=== PATIENT | male | born 1975 | race Caucasian/White ===

== ENCOUNTER 2016-10-19 14:41 | Emergency (ER) | payer MEDICARE | END 2016-10-19 19:50 | disposition other institution (70) | LOC: ER 14:41 | DX: J44.1 Chronic obstructive pulmonary disease with (acute) exacerbation (principal); L03.116 Cellulitis of left lower limb; L03.115 Cellulitis of right lower limb; G40.909 Epilepsy, unspecified, not intractable, without status epilepticus; I10 Essential (primary) hypertension; F17.210 Nicotine dependence, cigarettes, uncomplicated; Z99.81 Dependence on supplemental oxygen; Z79.899 Other long term (current) drug therapy | CPT/HCPCS: 99284; 99285-25 ==

== ENCOUNTER 2016-10-19 14:41 | Inpatient (IN) | payer MEDICARE ==
[~2016-10-19] VITALS: Ht 185.4 cm; Wt 126.0 kg
[2016-10-19 15:27] LABS: ARTERIAL BLD GAS O2 SATURATION 94.1 % (94-98); ARTERIAL BLOOD GAS BASE EXCESS 3.9 mmol/L (-2.0-3.0); ARTERIAL BLOOD GAS HCO3 32.3 mmol/L (22-26); ARTERIAL BLOOD GAS PCO2 65.4 mmHg (35-48); ARTERIAL BLOOD GAS pH 7.31 (7.35-7.45)
[2016-10-19 15:59] LABS: BASO % 0.4 % (0.2-1.2); EOS # 0.2 10_X3_uL (0.0-0.5); EOS % 2.9 % (0.8-7.0); GRAN # 5.1 10_X3_uL (1.8-5.4); HEMOGLOBIN 17.1 g/dL (13.7-17.5); LYMPH # 1.9 10_X3_uL (1.3-3.6); LYMPH % 23.9 % (21.8-53.1); MEAN CORPUSCULAR HEMOGLOBIN 28.3 pg (27.0-33.0); MEAN CORPUSCULAR HGB CONC 31.1 g/dL (32.0-36.0); MEAN CORPUSCULAR VOLUME 90.9 fL (79-92); MEAN PLATELET VOLUME 9.7 fl (7.5-11.5); MONO # 0.7 10_X3_uL (0.3-0.8); MONO % 8.8 % (5.3-12.2); PLATELET COUNT 192 x10_3/uL (163-337); RED BLOOD COUNT 6.05 x10_6/uL (4.6-6.1); RED CELL DISTRIBUTION WIDTH 17.7 % (11.6-14.4); WHITE BLOOD COUNT 7.9 x10_3/uL (4.2-9.1)
[2016-10-19 16:07] LABS: ALBUMIN 3.5 gm/dL (3.4-5.0); ALKALINE PHOSPHATASE 153 U/L (50-136); ALT/SGPT 28 U/L (7.53-40.17); AST/SGOT 24 U/L (6.66-35.34); BILIRUBIN,TOTAL 0.29 mg/dL (0.0-1.0); BLOOD UREA NITROGEN 10 mg/dL (7-18); CALCIUM 8.1 mg/dL (8.7-10.7); CARBON DIOXIDE 30 mmol/L (21-32); CREATINE KINASE 72 U/L (35-232); CREATININE 0.5 mg/dL (0.6-1.3); GLUCOSE,RANDOM 109 mg/dL (70-99); POTASSIUM 3.9 mmol/L (3.5-5.1); SODIUM 140 mmol/L (136-145); TOTAL PROTEIN 6.9 gm/dL (6.4-8.2)
[2016-10-20 06:27] LABS: BLOOD UREA NITROGEN 12 mg/dL (7-18); CALCIUM 8.8 mg/dL (8.7-10.7); CARBON DIOXIDE 33 mmol/L (21-32); CREATININE 0.6 mg/dL (0.6-1.3); GLUCOSE,RANDOM 138 mg/dL (70-99); POTASSIUM 4.8 mmol/L (3.5-5.1); SODIUM 141 mmol/L (136-145)
[2016-10-20 06:45] LABS: HEMATOCRIT 57.9 % (40-51); HEMOGLOBIN 18.2 g/dL (13.7-17.5); MEAN CORPUSCULAR HEMOGLOBIN 28.3 pg (27.0-33.0); MEAN CORPUSCULAR HGB CONC 31.4 g/dL (32.0-36.0); MEAN PLATELET VOLUME 9.2 fl (7.5-11.5); RED BLOOD COUNT 6.43 x10_6/uL (4.6-6.1); RED CELL DISTRIBUTION WIDTH 17.6 % (11.6-14.4); WHITE BLOOD COUNT 7.4 x10_3/uL (4.2-9.1)
[2016-10-20 06:46] LABS: ARTERIAL BLD GAS O2 SATURATION 87.1 % (94-98); ARTERIAL BLOOD GAS BASE EXCESS 5.6 mmol/L (-2.0-3.0); ARTERIAL BLOOD GAS HCO3 34.2 mmol/L (22-26); ARTERIAL BLOOD GAS PCO2 65.5 mmHg (35-48); ARTERIAL BLOOD GAS pH 7.34 (7.35-7.45)
[2016-10-21 07:02] LABS: HEMATOCRIT 57.2 % (40-51); HEMOGLOBIN 17.6 g/dL (13.7-17.5); MEAN CORPUSCULAR HEMOGLOBIN 27.8 pg (27.0-33.0); MEAN CORPUSCULAR HGB CONC 30.8 g/dL (32.0-36.0); MEAN CORPUSCULAR VOLUME 90.5 fL (79-92); MEAN PLATELET VOLUME 10.3 fl (7.5-11.5); RED BLOOD COUNT 6.32 x10_6/uL (4.6-6.1); RED CELL DISTRIBUTION WIDTH 18.3 % (11.6-14.4)
[2016-10-21 07:28] LABS: BLOOD UREA NITROGEN 16 mg/dL (7-18); CALCIUM 8.4 mg/dL (8.7-10.7); CARBON DIOXIDE 31 mmol/L (21-32); CREATININE 0.6 mg/dL (0.6-1.3); GLUCOSE,RANDOM 122 mg/dL (70-99); SODIUM 139 mmol/L (136-145)
[2016-10-21 08:27] LABS: POTASSIUM 5.4 mmol/L (3.5-5.1)
[2016-10-22 06:32] LABS: BLOOD UREA NITROGEN 19 mg/dL (7-18); CALCIUM 8.5 mg/dL (8.7-10.7); CARBON DIOXIDE 35 mmol/L (21-32); CREATININE 0.7 mg/dL (0.6-1.3); GLUCOSE,RANDOM 131 mg/dL (70-99); POTASSIUM 4.8 mmol/L (3.5-5.1); SODIUM 140 mmol/L (136-145)
[2016-10-22 06:48] LABS: HEMATOCRIT 58.6 % (40-51); MEAN CORPUSCULAR HEMOGLOBIN 28.1 pg (27.0-33.0); MEAN CORPUSCULAR HGB CONC 30.7 g/dL (32.0-36.0); MEAN CORPUSCULAR VOLUME 91.6 fL (79-92); MEAN PLATELET VOLUME 10.3 fl (7.5-11.5); RED BLOOD COUNT 6.4 x10_6/uL (4.6-6.1); RED CELL DISTRIBUTION WIDTH 18.5 % (11.6-14.4); WHITE BLOOD COUNT 11.3 x10_3/uL (4.2-9.1)
[2016-10-23 06:12] LABS: HEMATOCRIT 59.4 % (40-51); HEMOGLOBIN 18.6 g/dL (13.7-17.5); MEAN CORPUSCULAR HEMOGLOBIN 28.3 pg (27.0-33.0); MEAN CORPUSCULAR HGB CONC 31.3 g/dL (32.0-36.0); MEAN CORPUSCULAR VOLUME 90.4 fL (79-92); MEAN PLATELET VOLUME 9.4 fl (7.5-11.5); RED BLOOD COUNT 6.57 x10_6/uL (4.6-6.1); RED CELL DISTRIBUTION WIDTH 18.8 % (11.6-14.4); WHITE BLOOD COUNT 12.6 x10_3/uL (4.2-9.1)
[2016-10-23 06:16] LABS: BLOOD UREA NITROGEN 22 mg/dL (7-18); CALCIUM 8.6 mg/dL (8.7-10.7); CARBON DIOXIDE 37 mmol/L (21-32); CREATININE 0.7 mg/dL (0.6-1.3); GLUCOSE,RANDOM 106 mg/dL (70-99); POTASSIUM 4.8 mmol/L (3.5-5.1); SODIUM 137 mmol/L (136-145)
== END 2016-10-23 11:36 | disposition home or self-care (01) | DRG 190 ==
LOC: ER 14:41 → MS 19:50
PROVIDERS: Emergency Medicine; Family Medicine; ADMIT Family Medicine
PROC: 3E0234Z Introduction of Serum, Toxoid and Vaccine into Muscle, Percutaneous Approach (ICD-10-PCS; principal; 2016-10-20)
DX: J44.0 Chronic obstructive pulmonary disease with (acute) lower respiratory infection (principal); J18.0 Bronchopneumonia, unspecified organism; J96.90 Respiratory failure, unspecified, unspecified whether with hypoxia or hypercapnia; I50.21 Acute systolic (congestive) heart failure; L03.116 Cellulitis of left lower limb; L03.115 Cellulitis of right lower limb; J44.1 Chronic obstructive pulmonary disease with (acute) exacerbation; I11.0 Hypertensive heart disease with heart failure; I51.7 Cardiomegaly; G40.909 Epilepsy, unspecified, not intractable, without status epilepticus; Z90.49 Acquired absence of other specified parts of digestive tract; M79.1 Myalgia; M25.50 Pain in unspecified joint; M54.9 Dorsalgia, unspecified; Z99.81 Dependence on supplemental oxygen; Z79.899 Other long term (current) drug therapy; F17.210 Nicotine dependence, cigarettes, uncomplicated; Z83.3 Family history of diabetes mellitus; Z80.9 Family history of malignant neoplasm, unspecified; Z82.49 Family history of ischemic heart disease and other diseases of the circulatory system; Z23 Encounter for immunization
CPT/HCPCS: 36415; 36600; 71020; 71250; 80048; 80053; 80185; 82550; 82553; 82803; 83605; 83880; 85025; 86738; 87040; 87070; 87205; 87449; 90732; 93005; 93306; 94640; 94660; 94664; 96374; 96375; 99070; 99284; 99285-25; G0009; J2930

== ENCOUNTER 2016-11-15 18:44 | Emergency (ER) | payer MEDICARE ==
[2016-11-15 19:11] LABS: BASO % 0.2 % (0.2-1.2); EOS # 0.1 10_X3_uL (0.0-0.5); EOS % 0.4 % (0.8-7.0); GRAN % 79.1 % (34.0-67.9); HEMATOCRIT 53.9 % (40-51); HEMOGLOBIN 16.7 g/dL (13.7-17.5); LYMPH % 12.1 % (21.8-53.1); MEAN CORPUSCULAR HEMOGLOBIN 28.8 pg (27.0-33.0); MEAN CORPUSCULAR VOLUME 92.9 fL (79-92); MEAN PLATELET VOLUME 9.9 fl (7.5-11.5); MONO # 1.3 10_X3_uL (0.3-0.8); MONO % 8.2 % (5.3-12.2); PLATELET COUNT 189 x10_3/uL (163-337); RED CELL DISTRIBUTION WIDTH 20.1 % (11.6-14.4); WHITE BLOOD COUNT 16.4 x10_3/uL (4.2-9.1)
[2016-11-15 19:23] LABS: ALBUMIN 3.6 gm/dL (3.4-5.0); ALKALINE PHOSPHATASE 119 U/L (50-136); ALT/SGPT 24 U/L (7.53-40.17); AST/SGOT 22 U/L (6.66-35.34); BILIRUBIN,TOTAL 0.56 mg/dL (0.0-1.0); BLOOD UREA NITROGEN 18 mg/dL (7-18); CALCIUM 8.3 mg/dL (8.7-10.7); CARBON DIOXIDE 31 mmol/L (21-32); CREATININE 0.8 mg/dL (0.6-1.3); GLUCOSE,RANDOM 119 mg/dL (70-99); POTASSIUM 4.8 mmol/L (3.5-5.1); SODIUM 135 mmol/L (136-145); TOTAL PROTEIN 7.1 gm/dL (6.4-8.2)
[2016-11-15 19:25] LABS: ARTERIAL BLOOD GAS BASE EXCESS 3.1 mmol/L (-2.0-3.0); ARTERIAL BLOOD GAS HCO3 32.3 mmol/L (22-26); ARTERIAL BLOOD GAS pH 7.28 (7.35-7.45)
[2016-11-15 19:29] LABS: ARTERIAL BLOOD GAS PCO2 70.5 mmHg (35-48)
[2016-11-15 20:13] LABS: ARTERIAL BLD GAS O2 SATURATION 96.1 % (94-98); ARTERIAL BLOOD GAS BASE EXCESS 1.7 mmol/L (-2.0-3.0); ARTERIAL BLOOD GAS HCO3 32.3 mmol/L (22-26); ARTERIAL BLOOD GAS pH 7.24 (7.35-7.45)
[2016-11-15 20:18] LABS: ARTERIAL BLOOD GAS PCO2 78.8 mmHg (35-48)
[2016-11-15 21:25] LABS: ARTERIAL BLD GAS O2 SATURATION 94.9 % (94-98); ARTERIAL BLOOD GAS BASE EXCESS 1.8 mmol/L (-2.0-3.0); ARTERIAL BLOOD GAS HCO3 33.7 mmol/L (22-26)
[2016-11-15 23:02] LABS: ARTERIAL BLD GAS O2 SATURATION 87.3 % (94-98); ARTERIAL BLOOD GAS HCO3 32.3 mmol/L (22-26); ARTERIAL BLOOD GAS pH 7.21 (7.35-7.45)
== END 2016-11-16 00:35 | disposition short-term general hospital (02) ==
LOC: ER 18:44
PROVIDERS: General Practice
DX: I13.0 Hypertensive heart and chronic kidney disease with heart failure and stage 1 through stage 4 chronic kidney disease, or unspecified chronic kidney disease (principal); I50.9 Heart failure, unspecified; N18.9 Chronic kidney disease, unspecified; E87.2 Acidosis; J18.9 Pneumonia, unspecified organism; J84.9 Interstitial pulmonary disease, unspecified; J44.9 Chronic obstructive pulmonary disease, unspecified; R06.2 Wheezing; G40.909 Epilepsy, unspecified, not intractable, without status epilepticus; G89.29 Other chronic pain; F41.9 Anxiety disorder, unspecified; Z99.81 Dependence on supplemental oxygen; F17.210 Nicotine dependence, cigarettes, uncomplicated; Z79.899 Other long term (current) drug therapy
CPT/HCPCS: 36415; 36600; 71010; 80053; 82803; 83605; 83880; 85025; 87040; 93005; 94660; 94664; 96361; 96365; 96367; 96375; 99070; 99285; 99285-25; J2930; J7040; J7050

== ENCOUNTER 2016-11-29 15:36 | Emergency (ER) | payer MEDICARE ==
[2016-11-29 16:10] LABS: ARTERIAL BLD GAS O2 SATURATION 82.8 % (94-98); ARTERIAL BLOOD GAS BASE EXCESS 3.9 mmol/L (-2.0-3.0); ARTERIAL BLOOD GAS HCO3 35.1 mmol/L (22-26); ARTERIAL BLOOD GAS pH 7.24 (7.35-7.45)
[2016-11-29 16:11] LABS: ARTERIAL BLOOD GAS PCO2 85.2 mmHg (35-48)
[2016-11-29 16:14] LABS: BASO % 0.3 % (0.2-1.2); EOS # 0.2 10_X3_uL (0.0-0.5); EOS % 1.2 % (0.8-7.0); GRAN # 9.2 10_X3_uL (1.8-5.4); HEMOGLOBIN 16.8 g/dL (13.7-17.5); LYMPH # 2.8 10_X3_uL (1.3-3.6); LYMPH % 21.6 % (21.8-53.1); MEAN CORPUSCULAR HGB CONC 31.1 g/dL (32.0-36.0); MEAN CORPUSCULAR VOLUME 93.3 fL (79-92); MONO # 0.8 10_X3_uL (0.3-0.8); MONO % 5.9 % (5.3-12.2); PLATELET COUNT 179 x10_3/uL (163-337); RED BLOOD COUNT 5.79 x10_6/uL (4.6-6.1); RED CELL DISTRIBUTION WIDTH 20.6 % (11.6-14.4)
[2016-11-29 16:37] LABS: ALBUMIN 3.9 gm/dL (3.4-5.0); ALKALINE PHOSPHATASE 105 U/L (50-136); ALT/SGPT 24 U/L (7.53-40.17); AST/SGOT 23 U/L (6.66-35.34); BLOOD UREA NITROGEN 15 mg/dL (7-18); CALCIUM 8.2 mg/dL (8.7-10.7); CARBON DIOXIDE 30 mmol/L (21-32); GLUCOSE,RANDOM 168 mg/dL (70-99); SODIUM 137 mmol/L (136-145)
[2016-11-29 17:29] LABS: ARTERIAL BLD GAS O2 SATURATION 97.6 % (94-98); ARTERIAL BLOOD GAS BASE EXCESS 5.6 mmol/L (-2.0-3.0); ARTERIAL BLOOD GAS HCO3 36.7 mmol/L (22-26); ARTERIAL BLOOD GAS pH 7.26 (7.35-7.45)
[2016-11-29 17:34] LABS: ARTERIAL BLOOD GAS PCO2 85.3 mmHg (35-48)
== END 2016-11-29 18:30 | disposition other institution (70) ==
LOC: ER 15:36
PROVIDERS: General Practice
DX: J44.9 Chronic obstructive pulmonary disease, unspecified (principal); E87.2 Acidosis; I51.7 Cardiomegaly; I73.9 Peripheral vascular disease, unspecified; R60.9 Edema, unspecified; I50.9 Heart failure, unspecified; R06.02 Shortness of breath; Z99.81 Dependence on supplemental oxygen; G40.909 Epilepsy, unspecified, not intractable, without status epilepticus; I10 Essential (primary) hypertension; F17.210 Nicotine dependence, cigarettes, uncomplicated; Z79.899 Other long term (current) drug therapy
CPT/HCPCS: 36415; 36600; 71010; 80053; 82803; 83605; 83880; 85025; 87040; 93005; 94660; 94664; 96374; 99070; 99284; 99285-25; J2930